=== PATIENT | male | born 1975 | race Caucasian/White ===

== ENCOUNTER 2017-02-12 22:29 | Emergency (ER) | payer BC, OTHER ==
[2017-02-12 22:38] VITALS: BP 140/76; PULSE 100; TEMP 100.6; BMI 26.4
[2017-02-12] MEDS ORDERED: PENICILLIN G BENZATHINE 1,200,000 UNIT/2 ML PFS IM ONE ×2 (22:41→22:47)
--- NOTE | 2017-02-12 22:44 | PDOC ---
History of Present Illness - General Chief Complaint: Cold Symptoms Stated Complaint: BODY ACHES Time Seen by Provider: 02/12/17 22:38 History Source: Patient Exam Limitations: No Limitations - History of Present Illness Initial Comments: 02/12/17 22:41 This is a 41-year-old male who comes in complaining of sore throat, fever, headache and body aches. Patient said he has had symptoms times approximately 12 hours now. Patient has 2 children that recently were diagnosed with strep pharyngitis. Patient otherwise says he is healthy and denies any other complaints. Patient said he did not get his influenza shot this year PAST MEDICAL HISTORY: no significant history PAST SURGICAL HISTORY: no significant history FAMILY HISTORY: no pertinant history SOCIAL HISTORY: Pt lives with family and is employed. MEDICATIONS: reviewed ALLERGIES: As per nursing notes Review of Systems General: + fevers or chills, no weakness, no weight loss HEENT: No change in vision. + sore throat,. No ear pain CardioVascular: No chest pain or shortness of breath Respiratory:No cough, or wheezing. Gastrointestinal: no nausea, vomitting, diarrhea or constipation, No rectal bleeding Genitourinary: No dysuria, hematuria, or frequency Musculoskeletal: No joint or muscle pain or swelling Neurologic: No headache, vertigo, dizziness or loss of consciousness Psychiatric: nor depression Skin: No rashes or easy bruising Endocrine: no increased thirst or abnormal weight change Allergic: no skin or latex allergy All other systems reviewed and normal Exam: General: Well-nourished well-developed individual, no acute distress HEENT: Throat: Normal, posterior oropharynx moderate amount of erythema with slightly enlarged tonsils with exudative pharyngitis. Neck: Supple, no meningeal signs, + bilateral submandibular lymphadenopathy Eyes::Pupils equal reactive and round, extraocular motion intact Extremities: Warm, dry, no cyanosis, clubbing, or edema Skin: No rashes Neuro: Alert and oriented x3, CN II - XII intact, nonfocal exam with normal strength, normal sensation, normal reflexes, normal gait, Psych: Normal mood and affect Assessment and plan: This is a 41-year-old male who comes in with fever, exudative pharyngitis and lymphadenitis. Patient meets criteria for strep pharyngitis especially with 2 children that recently had a strep pharyngitis. Patient will be treated with Bicillin LA times one dose and discharged Past History - Past Medical History Allergies/Adverse Reactions: Allergies Allergy/AdvReac Type Severity Reaction Status Date / Time No Known Drug Allergies Allergy Verified 05/04/14 14:02 FRUITS Allergy Uncoded 05/04/14 09:49 NUTS Allergy Uncoded 05/04/14 09:49 Home Medications: Ambulatory Orders NK [No Known Home Medication] 02/12/17 COPD: No - Suicide/Smoking/Psychosocial Hx Smoking History: Never smoked Have you smoked in the past 12 months: No Number of Cigarettes Smoked Daily: 0 Information on smoking cessation initiated: No Hx Alcohol Use: No Drug/Substance Use Hx: No Substance Use Type: None *Physical Exam - Vital Signs Last Vital Signs Temp Pulse Resp BP Pulse Ox 100.6 F H 100 H 14 140/76 100 02/12/17 22:33 02/12/17 22:33 02/12/17 22:33 02/12/17 22:33 02/12/17 22:33 *DC/Admit/Observation/Transfer Diagnosis at time of Disposition: Strep pharyngitis - Discharge Dispostion Disposition: HOME Condition at time of disposition: Good Admit: No - Referrals - Patient Instructions Additional Instructions: Tylenol alternated with ibuprofen every 3-4 hours for fevers body aches and headache. You were treated with a long-acting penicillin injection so you do not need to take any additional antibiotics. Return to the emergency department immediately with ANY new, persistent or worsening symptoms. Continue any medications as previously prescribed by your physician. You should follow up with your primary doctor as soon as possible regarding today's emergency department visit. . Please make sure your doctor reviews the results of your emergency evaluation. Thank you for coming to the Emergency Department today for your care. It was a pleasure to see you today. Please note that your evaluation is INCOMPLETE until you follow-up with your doctor. - Post Discharge Activity
== END 2017-02-12 23:03 | disposition home or self-care (01) ==
LOC: FER 22:29
DX: J02.0 Streptococcal pharyngitis (principal)
CPT/HCPCS: 99282-25